=== PATIENT | male | born 1990 | race Native Hawaiian/Other Pacific Islander ===

== ENCOUNTER 2017-08-10 13:20 | Emergency (ER) | payer BC ==
[2017-08-10 13:27] VITALS: BP 113/75; PULSE 82; RESP 16; TEMP 99; O2SAT 99
--- NOTE | 2017-08-10 14:19 | ED PDOC ---
Arrival/HPI <Jeff Mills - Last Filed: 08/10/17 14:58> <Domi Ellington - Last Filed: 08/10/17 15:13> - General Chief Complaint: GI Problem Time Seen by Provider: 08/10/17 13:33 - History of Present Illness Associated Symptoms (Text): 08/10/17 14:16 26 YO M w/ PMH of internal fissures presents to the ED with bright red blood in his stools x 4 days. States the blood was noted after he passed a big bowl movement. After he was diagnosed with a internal fissure in 2011 he was advised to take as stool softener. Denies any anal intercourse or any insertion of foreign body. PMH: internal fissure and hemorrhoids PSH: NOne Allergy: KNDA FH: no h/o colon cancer 08/10/17 14:19 (Domi Ellington) Past Medical History - Provider Review Nursing Documentation Reviewed: Yes - Cardiac Hx Cardiac Disorders: (Denies) - Psychiatric Hx Substance Use: (Denies) <Domi Ellington - Last Filed: 08/10/17 15:13> Family/Social History Family/Social History: No Known Family HX Smoking Status: Denies Hx Alcohol Use: (Denies) Hx Substance Use: (Denies) <Domi Ellington - Last Filed: 08/10/17 15:13> Allergies/Home Meds <SantiagoelizJeff - Last Filed: 08/10/17 14:58> <Domi Ellington - Last Filed: 08/10/17 15:13> Allergies/Adverse Reactions: Allergies No Known Allergies Allergy (Verified 08/10/17 13:24) Physical Exam Vital Signs Reviewed: Yes Temperature: Afebrile Blood Pressure: Normal Pulse: Regular Respiratory Rate: Normal Appearance: Positive for: Well-Appearing Mental Status: Positive for: Alert and Oriented X 3 - Systems Exam Head: Present: Atraumatic, Normocephalic Pupils: Present: PERRL Conjunctiva: Present: Normal Mouth: Present: Moist Mucous Membranes Respiratory/Chest: Present: Clear to Auscultation. No: Respiratory Distress, Accessory Muscle Use Cardiovascular: Present: Regular Rate and Rhythm, Normal S1, S2. No: Murmurs Abdomen: Present: Normal Bowel Sounds. No: Tenderness, Distention, Rebound, Guarding, McBurney's Point Tender Rectal: Present: Other (No external hemmorids or masses noted. No internal masses noted. No obvious blood seen. Occult blood test done) Neurological: Present: GCS=15, CN II-XII Intact, Speech Normal Skin: Present: Warm, Dry, Normal Color <Domi Ellington - Last Filed: 08/10/17 15:13> Vital Signs Temp Pulse Resp BP Pulse Ox 08/10/17 13:24 99 F 82 16 113/75 99 Medical Decision Making <Jeff Mills - Last Filed: 08/10/17 14:58> <Domi Ellington - Last Filed: 08/10/17 15:13> ED Course and Treatment: 08/10/17 15:13 Occult blood test: Negative (Domi Ellington) - Lab Interpretations Lab Results: Lab Results 08/10/17 14:23: Stool Occult Blood Negative Disposition/Present on Arrival - Disposition Disposition Time: 14:58 Patient Plan: Discharge <Jeff Mills - Last Filed: 08/10/17 14:58> - Present on Arrival Any Indicators Present on Arrival: No - Disposition Have Diagnosis and Disposition been Completed?: Yes Patient Plan: Discharge <Doim Ellington - Last Filed: 08/10/17 15:13> - Disposition Diagnosis: Anal fissure Disposition: HOME/ ROUTINE Patient Problems: Current Active Problems Problem Status Onset Anal fissure Acute Condition: GOOD Discharge Instructions (ExitCare): Anal Fissure (DC) Additional Instructions: If symptoms return please return to the ER. F/U with PMD in 1-2 days Prescriptions: Docusate [Colace] 100 mg PO BID 7 Days cap Lidocaine 2% Viscous 15 ml MM Q8 PRN #1 bottle PRN Reason: Pain, Moderate (4-7) Forms: [facility] (Kinyarwanda)
== END 2017-08-10 15:14 | disposition home or self-care (01) ==
LOC: H.ER 13:20
DX: K60.2 Anal fissure, unspecified (principal)
CPT/HCPCS: 99283; G0328

== ENCOUNTER 2018-07-13 09:21 | Emergency (ER) | payer BC ==
--- NOTE | 2018-07-13 10:17 | ED PDOC ---
HPI: Chest Pain Time Seen by Provider: 07/13/18 09:30 Chief Complaint (Nursing): Chest Pain Chief Complaint (Provider): Chest Pain History Per: Patient History/Exam Limitations: no limitations Onset/Duration Of Symptoms: Days (x2) Current Symptoms Are (Timing): Still Present Additional Complaint(s): Patient is a 27 y/o male with a PMHx of GERD who presents to the ED for evaluation of chest pressure intermittently since yesterday. In addition, patient complains of a cough, for the past two days, and body aches, since yesterday. Patient thought the symptoms were associated with his GERD so he took fruit salts, containing a combination of fruits and acids. Patient woke up this morning and felt some relief. Patient denies fever, difficulty breathing, vomiting, diarrhea, rash, and recent travel. PCP: None Provided Past Medical History Reviewed: Historical Data, Nursing Documentation, Vital Signs Vital Signs: Last Vital Signs Temp 98.6 F 07/13/18 09:31 Pulse 100 H 07/13/18 09:31 Resp 17 07/13/18 09:31 BP 145/84 07/13/18 09:31 Pulse Ox 100 07/13/18 09:31 - Medical History PMH: GERD Denies: Chronic Kidney Disease - Surgical History Surgical History: No Surg Hx - Family History Family History: States: CAD - Social History Current smoker - smoking cessation education provided: No Ex-Smoker (has not smoked in the last 12 months): No Alcohol: None Drugs: Denies - Home Medications Home Medications: Ambulatory Orders Medication Instructions Recorded Docusate [Colace] 100 mg PO BID 7 Days cap 08/10/17 Lidocaine 2% Viscous 15 ml MM Q8 PRN #1 bottle 08/10/17 Famotidine [Pepcid] 20 mg PO DAILY #14 tab 07/13/18 - Allergies Allergies/Adverse Reactions: Allergies Allergy/AdvReac Type Severity Reaction Status Date / Time No Known Allergies Allergy Verified 08/10/17 13:24 GUZMAN Risk Score for UA/NSTEMI - GUZMAN Risk Score Age > 64: NO 3 or more CAD Risk Factors: NO Known CAD (Stenosis greater than 50%): NO Aspirin use in past 7 days: NO Severe Angina: NO EKG ST changes greater than 0.5mm: NO Positive Cardiac Marker: NO GUZMAN Score: 0 Risk %: 5% Wells Criteria for PE - Wells Criteria for Pulmonary Embolism Clinical Signs and Symptoms of DVT: No P.E is #1 Diagnosis, or Equally Likely: No Heart Rate >100: No Immobilization at least 3 days;Surgery previous 4 weeks: No Previous, objectively diagnosed PE or DVT: No Hemoptysis: No Malignancy w/treatment within 6 months, or palliative: No Total Score: 0 Review of Systems ROS Statement: Except As Marked, All Systems Reviewed And Found Negative Constitutional: Positive for: Other (body aches). Negative for: Fever Cardiovascular: Positive for: Chest Pain (pressure) Respiratory: Positive for: Cough (dry). Negative for: Other (difficulty breathing) Gastrointestinal: Negative for: Vomiting, Diarrhea Skin: Negative for: Rash Physical Exam - Reviewed Nursing Documentation Reviewed: Yes Vital Signs Reviewed: Yes - Physical Exam Appears: Positive for: Non-toxic, No Acute Distress Head Exam: Positive for: ATRAUMATIC, NORMAL INSPECTION, NORMOCEPHALIC Skin: Positive for: Normal Color, Warm, Dry Eye Exam: Positive for: EOMI, Normal appearance, PERRL Neck: Positive for: Normal, Painless ROM, Supple Cardiovascular/Chest: Positive for: Regular Rate, Rhythm. Negative for: Murmur Respiratory: Positive for: Normal Breath Sounds. Negative for: Respiratory Distress Gastrointestinal/Abdominal: Positive for: Normal Exam, Soft. Negative for: Tenderness Back: Positive for: Normal Inspection. Negative for: L CVA Tenderness, R CVA Tenderness, Vertebral Tenderness Extremity: Positive for: Normal ROM. Negative for: Pedal Edema, Deformity Neurologic/Psych: Positive for: Alert, Oriented. Negative for: Motor/Sensory Deficits - Laboratory Results Result Diagrams: 07/13/18 10:17 07/13/18 09:21 - ECG ECG Rhythm: Positive for: Normal QRS, Normal ST Segment, Sinus Rhythm Rate: 98 O2 Sat by Pulse Oximetry: 100 (RA) Pulse Ox Interpretation: Normal - Progress Re-evaluation Time: 11:50 Condition: Re-examined, Improved Medical Decision Making Medical Decision Making: Time: 48 Impression: Chest pain and body aches DDx includes but not limited to ACS and GERD; r/o PNA and influenza. Plan: EKG BMP Troponin I CBC CXR Insurance Follow Up Rep Influenza A B Scribe Attestation: Documented by Daryl Curry, acting as a scribe for Eduardo Saleh MD. Provider Scribe Attestation: All medical record entries made by the Scribe were at my direction and personally dictated by me. I have reviewed the chart and agree that the record accurately reflects my personal performance of the history, physical exam, medical decision making, and the department course for this patient. I have also personally directed, reviewed, and agree with the discharge instructions and disposition. Disposition - Clinical Impression Clinical Impression: Chest pain - Patient ED Disposition Is Patient to be Admitted: No Counseled Patient/Family Regarding: Studies Performed, Diagnosis, Need For Followup - Disposition Referrals: [facility] [Outside] Disposition: Routine/Home Disposition Time: 11:53 Condition: GOOD Additional Instructions: MELE GARCÍA, thank you for letting us take care of you today. Your provider was Eduardo Saleh MD and you were treated for CHEST PAIN, WEIRD BODY PAIN. The emergency medical care you received today was directed at your acute symptoms. If you were prescribed any medication, please fill it and take as d irected. It may take several days for your symptoms to resolve. Return to the Emergency Department if your symptoms worsen, do not improve, or if you have any other problems. Please contact your doctor or call one of the physicians/clinics you have been referred to that are listed on the Patient Visit Information form that is included in your discharge packet. Bring any paperwork you were given at discharge with you along with any medications you are taking to your follow up visit. Our treatment cannot replace ongoing medical care by a primary care provider outside of the emergency department. [facility] of your care today. If you had an X-Ray or CT scan: A Radiologist will review the ED reading if any change in treatment is needed we will contact you. If you had a blood, urine, or wound culture: It will take several days for the r esults, if any change in treatment is needed we will contact you. If you had an STI test: It will take 48 hours for the results. Please call after 1 week if you have not heard back. Prescriptions: Famotidine [Pepcid] 20 mg PO DAILY #14 tab Instructions: Chest Pain, Acid Reflux (Gastroesophageal Reflux Disease), Adult (DC)
[2018-07-13 10:32] LABS: BASO % 0.6 % (0.0-2.0); EOS # 0.1 K/uL (0.0-0.7); EOS % 2.1 % (0.0-4.0); HEMOGLOBIN 14.7 g/dL (12.0-18.0); LYMPH # 1.2 K/uL (1.0-4.3); LYMPH % 28.4 % (20.0-40.0); MEAN CELL VOLUME 82.4 fl (80.0-94.0); MEAN CORPUSCULAR HEMOGLOBIN 27.3 pg (27.0-31.0); MEAN CORPUSCULAR HGB CONC 33.1 g/dL (33.0-37.0); MEAN PLATELET VOLUME 7.9 fl (7.2-11.7); MONO # 0.2 K/uL (0.0-0.8); MONO % 5.3 % (0.0-10.0); NEUT # 2.7 K/uL (1.8-7.0); NEUT % 63.6 % (50.0-75.0); NRBC % 0.1 % (0.0-0.0); RBC 5.39 Mil/uL (4.40-5.90); RED CELL DISTRIBUTION WIDTH 13.5 % (11.5-14.5); WHITE BLOOD COUNT 4.3 K/uL (4.8-10.8)
--- NOTE | 2018-07-13 11:13 | RAD ---
Date of service: 07/13/2018 HISTORY: cough chest pain COMPARISON: No prior. TECHNIQUE: Chest PA and lateral FINDINGS: LUNGS: No active pulmonary disease. PLEURA: No significant pleural effusion identified. No pneumothorax apparent. CARDIOVASCULAR: No aortic atherosclerotic calcification present. Normal cardiac size. No pulmonary vascular congestion. OSSEOUS STRUCTURES: No significant abnormalities. VISUALIZED UPPER ABDOMEN: Normal. OTHER FINDINGS: None. IMPRESSION: No active disease.
[2018-07-13 11:38] LABS: BLOOD UREA NITROGEN 10 mg/dl (9-20); CALCIUM 9.2 mg/dL (8.4-10.2); GFR NON-AFRICAN AMERICAN > 60
[2018-07-13 12:14] VITALS: BP 105/67; PULSE 82; RESP 17; TEMP 98.2; O2SAT 99
--- NOTE | 2018-07-14 10:03 | CARD ---
APPROVED REPORT Date of service: 07/13/2018 EKG Measurement Heart [id number] <Conclusion> Normal sinus rhythm Normal ECG
== END 2018-07-13 12:05 | disposition home or self-care (01) ==
LOC: H.ER 09:21
DX: R07.89 Other chest pain (principal); K21.9 Gastro-esophageal reflux disease without esophagitis